=== PATIENT | female | born 1980 | race Caucasian/White ===

== ENCOUNTER 2017-01-29 16:26 | Outpatient (CLI) | payer BC ==
[~2017-01-29] VITALS: Ht 172.7 cm; Wt 102.3 kg
[2017-01-29 16:50] VITALS: BP 153/88; PULSE 90; TEMP 98.3
[2017-01-29] MEDS ORDERED: NASONEX SPRAY17 GM NS (16:59)
[2017-01-29] MEDS ORDERED: MULTI VITAMINS1 TAB PO (16:59)
[2017-01-29 18:00] VITALS: BP 132/64; PULSE 73
== END 2017-01-29 18:00 | disposition home or self-care (01) ==
LOC: LDRO 16:26
DX: Z34.03 Encounter for supervision of normal first pregnancy, third trimester (principal); Z3A.40 40 weeks gestation of pregnancy

== ENCOUNTER 2017-02-03 20:59 | Inpatient (IN) | payer BC ==
[~2017-02-03] VITALS: Ht 172.7 cm; Wt 102.7 kg
[2017-02-03] VITALS (7 sets, daily range): BP systolic 141–153; BP diastolic 78–83; PULSE 56–108; TEMP 98–98.8
[~2017-02-03 20:59] MED LIST: MULTI VITAMINS1 TAB PO; NASONEX SPRAY17 GM NS
[2017-02-03] MEDS ORDERED: TYLENOL 500MG500 MG PO (21:32)
[2017-02-03] MEDS ORDERED: TUMS500 MG (21:33)
[2017-02-03 23:16] LABS: BASO # 0.1 (0.0-0.2); BASO % 0.2 % (0.0-2.0); EOS % 0.2 % (0-4.0); GRAN # 17.9 (1.4-6.5); GRAN % 82.9 % (42.2-75.2); HEMATOCRIT 37.6 % (37.0-47.0); HEMOGLOBIN 13.1 g/dl (12.5-16.0); LYMPH # 2.6 (1.2-3.4); LYMPH % 11.9 % (20.0-51.0); MEAN CELL VOLUME 86 fl (80.0-100.0); MEAN CORPUSCULAR HEMOGLOBIN 30 pg (27.0-31.0); MEAN CORPUSCULAR HGB CONC 35 g/dl (33.0-37.0); MONO # 0.8 (0.1-0.6); MONO % 3.8 % (1.7-9.3); PLATELET COUNT 254 K/mm3 (130-400); RED BLOOD COUNT 4.36 M/mm3 (4.10-5.30); REDCELL DISTRIBUTION WIDTH-CV 12.3 % (11.5-14.5)
[2017-02-03 23:18] LABS: WHITE BLOOD COUNT 21.6 K/mm3 (4.8-10.8)
[2017-02-03 23:27] LABS: ADJUSTED CALCIUM 9.2 mg/dL (8.4-10.2); ALBUMIN 3.6 gm/dL (3.5-5.0); BILIRUBIN,TOTAL 0.4 mg/dL (0.0-1.0); CALCIUM 8.9 mg/dL (8.4-10.2); CREATININE, serum 0.64 mg/dL (0.52-1.25); POTASSIUM 3.6 mmol/L (3.4-5.0); TOTAL PROTEIN 6.7 gm/dL (6.4-8.2)
[2017-02-04] VITALS (43 sets, daily range): BP systolic 98–170; BP diastolic 54–87; PULSE 60–113; TEMP 97.6–99.9
[2017-02-04 01:05] LABS: PH 7 (5-8); URINE APPEARANCE Hazy; URINE BACTERIA None Seen /hpf; URINE BILIRUBIN Negative (NEGATIVE); URINE BLOOD 3+ (NEGATIVE); URINE COLOR Yellow; URINE GLUCOSE Negative (NEGATIVE); URINE KETONE Negative (NEGATIVE); URINE RBC >50 /hpf; URINE UROBILINOGEN Negative (NEGATIVE); URINE WBC 20-50 /hpf
[2017-02-05 09:30] VITALS: BP 140/76; PULSE 66; TEMP 98.5
[2017-02-05] MEDS ORDERED: PERCOCET 325 MG1 TA2 PO (12:54)
[2017-02-05 17:00] VITALS: BP 148/86; PULSE 98; TEMP 97.8
[2017-02-05 22:10] VITALS: BP 140/79; PULSE 65; TEMP 98.3
[2017-02-06 07:31] VITALS: BP 141/84; PULSE 75; TEMP 98.5
== END 2017-02-06 17:20 | disposition home or self-care (01) | DRG 775 ==
LOC: LDRO 20:59 → LDR 22:15 → OB 02-04 11:30
PROVIDERS: Obstetrics & Gynecology
PROC: 10E0XZZ Delivery of Products of Conception, External Approach (ICD-10-PCS; principal; 2017-02-04)
PROC: 0UQMXZZ Repair Vulva, External Approach (ICD-10-PCS; 2017-02-04)
DX: O48.0 Post-term pregnancy (principal); O13.4 Gestational [pregnancy-induced] hypertension without significant proteinuria, complicating childbirth; O70.0 First degree perineal laceration during delivery; Z3A.41 41 weeks gestation of pregnancy; Z37.0 Single live birth
CPT/HCPCS: J2590; J2795; J7120

== ENCOUNTER → 2017-02-18 | Outpatient (CLI) | payer BC ==
[~2017-02-18] MED LIST changes: +PERCOCET 325 MG1 TA2 PO; +TUMS500 MG; +TYLENOL 500MG500 MG PO
== END ==
LOC: OLC 12:12
DX: Z39.1 Encounter for care and examination of lactating mother (principal); Z71.89 Other specified counseling

== ENCOUNTER 2019-03-29 16:40 | Inpatient (IN) | payer BC ==
[~2019-03-29] VITALS: Ht 172.7 cm; Wt 91.4 kg
[2019-03-29] MEDS ORDERED: MAGNESIUM ELEME30 MG PO (17:52)
[2019-03-29] MEDS ORDERED: TOBRADEX EYE O3.5 GM OP (17:52)
[2019-03-29] MEDS ORDERED: VITAMIND3 5000 (17:53)
[2019-03-29 18:30] VITALS: BP 144/81; PULSE 101; TEMP 98
--- NOTE | 2019-03-29 19:00 | NUR ---
1800- Patient and ambulatory into LDR-1 for IOL for 21 week demise. Patient oriented to room. Patient into restroom to void and change into gown. 1814- Report from SAMUEL Castellano. 1829- See Physician Notification. 1899- at bedside to explain plan of care. bereavement resources given to patient and . 1929- Assessment completed. IV started by SAMUEL Garcia. Labs drawn and sent. 1944- Cytotec placed. See eMAR. 2014- Adult Probation Officer notified. 2029- [facility] contacted per patient wishes.
[2019-03-29] MEDS ORDERED: PRENATAL MVI (19:28)
[2019-03-29 19:30] VITALS: BP 125/72; PULSE 85; TEMP 98.3
[2019-03-29 20:17] LABS: BASO # 0.1 (0.0-0.2); BASO % 0.4 % (0.0-2.0); EOS # 0.1 (0.0-0.7); EOS % 0.9 % (0-4.0); GRAN # 10.6 (1.4-6.5); GRAN % 74.2 % (42.2-75.2); HEMATOCRIT 38.1 % (37.0-47.0); HEMOGLOBIN 13.2 g/dl (12.5-16.0); LYMPH # 2.7 (1.2-3.4); LYMPH % 19.2 % (20.0-51.0); MEAN CELL VOLUME 89 fl (80.0-100.0); MEAN CORPUSCULAR HEMOGLOBIN 31 pg (27.0-31.0); MEAN CORPUSCULAR HGB CONC 35 g/dl (33.0-37.0); MEAN PLATELET VOLUME 9.8 fl (7.4-10.4); MONO # 0.7 (0.1-0.6); MONO % 4.9 % (1.7-9.3); PLATELET COUNT 301 K/mm3 (130-400); REDCELL DISTRIBUTION WIDTH-CV 12.4 % (11.5-14.5)
[2019-03-29 20:21] LABS: ALBUMIN 4.2 gm/dL (3.5-5.0); BILIRUBIN,TOTAL 0.2 mg/dL (0.0-1.0); CALCIUM 8.9 mg/dL (8.4-10.2); CREATININE, serum 0.47 (0.52-1.25); POTASSIUM 3.6 mmol/L (3.4-5.0); TOTAL PROTEIN 7.4 gm/dL (6.4-8.2)
[2019-03-29 20:51] LABS: THYROID STIMULATING HORMONE 4.77 uIU/mL (0.465-4.680)
[2019-03-29 21:00] VITALS: BP 112/70; PULSE 64; TEMP 98
[2019-03-29 22:00] VITALS: BP 115/72; PULSE 63; TEMP 97.5
[2019-03-29 23:00] VITALS: BP 90/51; PULSE 61; TEMP 98.1
[2019-03-30] VITALS (15 sets, daily range): BP systolic 95–129; BP diastolic 46–67; PULSE 55–79; TEMP 97.8–98.5
--- NOTE | 2019-03-30 01:00 | NUR ---
0000- Patient denies contractions or cramping. Cervix unchanged. 0015- See Physician Notification. 0100- Patient reports mild cramping. Patient denies contractions.
--- NOTE | 2019-03-30 05:00 | NUR ---
0230- RN to bedside. Patient has complaints of increased pain due to contractions. 0330- RN to bedside. Patient ambulatory in room complaining of increased pain and pressure. 0345- SVE of unknown presenting parts. Patient remains ambulatory around room. 0350- See Physician Notification. 0426- Vaginal demise of male delivered by SAMUEL Garcia. Nuchal cord x3 reduced by SAMUEL Garcia. Cord clamped and cut. Fetus placed in [employer] Cradle and warm blankets and given to mother. 0435- at bedside. orders Cytotec for placental release. 0445- Cytotec 200mcg given. See eMAR. 0500- PP Recovery started. 05- Spontaneous delivery of intact placenta. Plancenta sent to pathology per .
[2019-03-30] MEDS ORDERED: PERCOCET 325 MG1 TA2 PO (05:55)
--- NOTE | 2019-03-30 06:30 | NUR ---
Report from Leroy Jasso RN and care of patient assumed. RN at bedside to discuss plan of care and review patient wishes. Vaginal bleeding WNL and pericare given. Patient denies need for medication at this time. Desires to rest. Call light in reach.
--- NOTE | 2019-03-30 06:44 | NUR ---
[facility] called to verify procedure for potential chromosomal studies. Orders per Surya's physician that sample must be collected as soon as possible. RN discussing plan and patient wishes. Patient has decided after discussing with Dr. Howell that they do not desire chromosomal testing. Placenta sent to lab for ordered studies.
--- NOTE | 2019-03-30 13:00 | NUR ---
Sam with [facility] on unit. Release paperwork signed per protocol. Baby leaves unit at this time under the care of Chris.
--- NOTE | 2019-03-30 13:05 | NUR ---
1245- Patient given discharge instructions. Reviewed warning signs and reviewed follow up appt. Reviewed care. Patient denies questions. 1305- Patient escorted off unit by this RN.
[2019-03-31 06:03] LABS: BETA-2 GPI IGG AABS <20.0 CU (<=20.0); BETA-2 GPI IGM AABS <20.0 CU (<=20.0)
[2019-03-31 06:12] LABS: TOXOPLASMA AB, IGG <3.0 IU/mL (0.0-7.1); TOXOPLASMA AB, IGM <3.0 AU/mL (0.0-7.9); TOXOPLASMA IGG VALUE Negative (Negative); TOXOPLASMA IGM VALUE Negative (Negative)
[2019-03-31 12:15] LABS: LUPUS ANTICOAGULANT INR 1.1 (0.7-1.3); LUPUS ANTICOAGULANT PT 13.8 Seconds (())
[2019-04-01 09:18] LABS: RPR (VDRL) XXX
== END 2019-03-30 13:05 | disposition home or self-care (01) | DRG 807 ==
LOC: LDR 16:40
PROVIDERS: ADMIT Obstetrics & Gynecology
PROC: 10E0XZZ Delivery of Products of Conception, External Approach (ICD-10-PCS; principal; 2019-03-30)
PROC: 3E033VJ Introduction of Other Hormone into Peripheral Vein, Percutaneous Approach (ICD-10-PCS; 2019-03-30)
DX: O36.4XX0 Maternal care for intrauterine death, not applicable or unspecified (principal); Z37.1 Single stillbirth; Z3A.20 20 weeks gestation of pregnancy; O69.1XX0 Labor and delivery complicated by cord around neck, with compression, not applicable or unspecified; O69.2XX0 Labor and delivery complicated by other cord entanglement, with compression, not applicable or unspecified; Z23 Encounter for immunization
CPT/HCPCS: J1170; J2590